=== PATIENT | male | born 2000 | race Caucasian/White ===

== ENCOUNTER 2024-07-06 21:15 | Emergency (ER) | payer SELFPAY ==
[2024-07-06 21:29] VITALS: BP 119/71; PULSE 122; RESP 24; TEMP 36.7; O2SAT 95; BMI 21.1
--- NOTE | 2024-07-06 21:37 | CTR_ITS ---
PROCEDURE INFORMATION: Exam: CT Abdomen And Pelvis Without Contrast Exam date and time: 07/06/2024 9:59 PM Age: 23 years old Clinical indication: Abdominal pain; Right; Patient HX: C/O RT flank pain TECHNIQUE: Imaging protocol: Computed tomography of the abdomen and pelvis without contrast. Radiation optimization: All CT scans at this facility use at least one of these dose optimization techniques: automated exposure control; mA and/or kV adjustment per patient size (includes targeted exams where dose is matched to clinical indication); or iterative reconstruction. COMPARISON: No relevant prior studies available. RADIATION DOSE METRICS: Total DLP (mGy-cm): 365.16 FINDINGS: Liver: Normal. No mass. Gallbladder and biliary ducts: Normal. No calcified stones. No ductal dilation. Pancreas: Normal. No ductal dilation. Spleen: Normal. No splenomegaly. Adrenal glands: Normal. No mass. Kidneys and ureters: There is an obstructing 3 mm stone in the distal right ureter at the ureterovesical junction with upstream hydroureter and mild hydronephrosis. Stomach and bowel: Unremarkable. No obstruction. No mucosal thickening. Appendix: No evidence of appendicitis. Intraperitoneal space: Unremarkable. No free air. No significant fluid collection. Vasculature: Unremarkable. No abdominal aortic aneurysm. Lymph nodes: Unremarkable. No enlarged lymph nodes. Urinary bladder: Unremarkable as visualized. Reproductive: Unremarkable as visualized. Bones/joints: Unremarkable. No acute fracture. Soft tissues: Unremarkable. CT/CT kidney stone [id number] IMPRESSION: There is an obstructing 3 mm stone in the distal right ureter at the ureterovesical junction with upstream hydroureter and mild hydronephrosis.
--- NOTE | 2024-07-06 21:39 | ED_ITS ---
HPI - Back Pain/Injury 2 General: Chief Complaint: Back Pain/Injury Stated Complaint: lOWER ABD PAIN Time Seen by Provider: 07/06/24 21:27 History of Present Illness: 23-year-old man who presents emergency r oom with right flank pain. He had an episode yesterday that lasted about 30 minutes but resolved. Then today he has developed severe low flank pain radiating into his groin. He has had some nausea but no vomiting. No fever. He does have a history of kidney stones. Related Data Previous Rx's Medication Instructions Recorded cephalexin 500 mg capsule 500 mg PO BID 5 days #10 caps 07/06/24 hydrocodone 5 mg-acetaminophen 325 1 tab PO Q6H PRN pain #20 tabs 07/06/24 mg tablet ondansetron 8 mg disintegrating 8 mg PO Q6H #14 tabs 07/06/24 tablet tamsulosin 0.4 mg capsule (Flomax) 0.4 mg PO DAILY #30 caps 07/06/24 Review of Systems 2 Narrative: Constitutional symptoms: Negative except as documented in HPI. Skin symptoms: Negative except as documented in HPI. Eye symptoms: Negative except as documented in HPI. ENMT symptoms: Negative except as documented in HPI. Respiratory symptoms: Negative except as documented in HPI. Cardiovascular symptoms: Negative except as documented in HPI. Gastrointestinal symptoms: Negative except as documented in HPI. Genitourinary symptoms: Negative except as documented in HPI. Musculoskeletal symptoms: Negative except as documented in HPI. Neurologic symptoms: Negative except as documented in HPI. Psychiatric symptoms: Negative except as documented in HPI. Endocrine symptoms: Negative except as documented in HPI. Physical Exam 2 Narrative: EXAM NARRATIVE: General: Alert, patient is in acute pain. Skin: Warm, dry. Head: Normocephalic, atraumatic. Neck: Supple, trachea midline. Eye: Extraocular movements are intact. Ears, nose, mouth and throat: mucosa moist. Cardiovascular: Regular, Normal peripheral perfusion. Respiratory: Lungs are clear to auscultation, respirations are non-labored, breath sounds are equal, Symmetrical chest wall expansion. Gastrointestinal: Soft, moderate right flank pain, Non distended Musculoskeletal: Normal ROM, no deformity. Neurological: Alert and oriented, No focal neurological deficit observed. Psychiatric: Cooperative, appropriate mood & affect. Course 2 Vital Signs: Vital signs: Vital Signs Temperature 98.0 F 07/06/24 21:29 Pulse Rate 71 07/06/24 23:05 Respiratory Rate 16 07/06/24 23:05 Blood Pressure 119/71 07/06/24 21:29 Pulse Oximetry 97 07/06/24 23:05 Oxygen Delivery Me thod Room Air 07/06/24 21:29 MDM - Back Pain/Injury Medical Decision Making Medical decision making: Differential diagnosis including but not limited to and based on the above HPI, review of systems and physical exam: Ureterolithiasis. Urinary tract infection. Appendicitis. Cholecystis. Musculoskeletal / back pain. Pyelonephritis Orders placed to evaluate differential diagnosis based on the above differential, HPI and physical exam Lab Review: Laboratory results were reviewed and interpreted by myself the emergency room physician. No leukocytosis. No anemia. No renal failure. CT of the abdomen pelvis without contrast: Patient has a 4 mm right UVJ stone. There is moderate hydronephrosis. Films were interpreted by myself the emergency room provider and pending final radiology review. I reviewed the patient's medical record. Reexamination: Patient appears somewhat improved. No altered mental status. No focal motor deficits. No fevers. Assessment and plan: Ureterolithiasis ?IV Toradol, IV Zofran and 1 L normal saline bolus in the emergency room. - Discharged home - Discussed findings and plan with patient. Answered any questions. - All laboratory values were reviewed and interpreted personally by myself, the ER physician - All imaging was reviewed and interpreted personally by myself, the ER physician. - Evaluation and treatment of this problem were appropriate in the emergency setting Labs 07/06/24 21:51 07/06/24 21:51 Radiology Impressions Abdomen/Pelvis CT 07/06/24 21:37 IMPRESSION: There is an obstructing 3 mm stone in the distal right ureter at the ureterovesical junction with upstream hydroureter and mild hydronephrosis. Laboratory Results WBC 7.39 10^3/uL (3.29-11.43) 07/06/24 21:51 RBC 5.53 10^6/uL (3.85-5.65) 07/06/24 21:51 Hgb 15.80 g/dL (11.27-16.99) 07/06/24 21:51 Hct 45.9 % (37-53) 07/06/24 21:51 MCV 83.0 fl (82-101) 07/06/24 21:51 MCH 28.6 pg (27-33) 07/06/24 21:51 MCHC 34.4 g/dL (30-55) 07/06/24 21:51 RDW 11.9 % (12.1-15.1) L 07/06/24 21:51 Plt Count 247 10^3/cmm (157-399) 07/06/24 21:51 MPV 10.7 fL (7.4-10.4) H 07/06/24 21:51 Neut % (Auto) 49.5 % 07/06/24 21:51 Lymph % (Auto) 39.0 % 07/06/24 21:51 [place] % (Auto) 9.1 % 07/06/24 21:51 Eos % (Auto) 1.4 % 07/06/24 21:51 Baso % (Auto) 0.7 % 07/06/24 21:51 Neut # (Auto) 3.67 10^3/uL (1.8-7.7) 07/06/24 21:51 Lymph # (Auto) 2.9 10^3/uL (0.8-4.8) 07/06/24 21:51 [place] # (Auto) 0.7 10^3/uL (0.2-0.9) 07/06/24 21:51 Eos # (Auto) 0.1 10^3/uL (0.0-0.8) 07/06/24 21:51 Baso # (Auto) 0.1 10^3/uL (0.0-0.1) 07/06/24 21:51 Nucleated RBC % (auto) 0 % 07/06/24 21:51 Nucleated RBCs # 0.0 /100WBC 07/06/24 21:51 Sodium 144 mmol/L (136-145) 07/06/24 21:51 Potassium 3.3 mmol/L (3.5-5.1) L 07/06/24 21:51 Chloride 104 mmol/L (98-107) 07/06/24 21:51 Carbon Dioxide 22 mmol/L (22-29) 07/06/24 21:51 Anion Gap 21.3 (5-19) H 07/06/24 21:51 BUN 13 mg/dL (6-20) 07/06/24 21:51 Creatinine 1.1 mg/dL (0.7-1.2) 07/06/24 21:51 GFR Calculation 81.6 mL/min (90-130) L 07/06/24 21:51 Glucose 121 mg/dL (65-115) H 07/06/24 21:51 Calculated Osmolality 299 mOsm/kg (285-295) H 07/06/24 21:51 Calcium 9.2 mg/dL (8.5-10.5) 07/06/24 21:51 Total Bilirubin 0.4 mg/dL (0.15-1.2) 07/06/24 21:51 AST 14 U/L (0-40) 07/06/24 21:51 ALT 17 U/L (0-41) 07/06/24 21:51 Alkaline Phosphatase 60 U/L (40-130) 07/06/24 21:51 C-Reactive Protein 3.0 mg/L (0.0-4.9) 07/06/24 21:51 Total Protein 7.3 g/dL (6.6-8.7) 07/06/24 21:51 Albumin 4.6 g/dL (3.5-5.2) 07/06/24 21:51 Globulin 2.7 g/dL (1.3-4.6) 07/06/24 21:51 Urine Color Yellow (Yellow) 07/06/24 22:42 Urine Appearance Clear (CLEAR) 07/06/24 22:42 Urine pH 7.0 (5-7) 07/06/24 22:42 Ur Specific [place] 1.026 (1.005-1.030) 07/06/24 22:42 Urine Protein Trace (Negative) A 07/06/24 22:42 Urine Glucose (UA) Negative (Normal) 07/06/24 22:42 Urine Ketones 1+ (Negative) H 07/06/24 22:42 Urine Blood Negative (Negative) 07/06/24 22:42 Urine Nitrate Negative (Negative) 07/06/24 22:42 Urine Bilirubin Negative (Negative) 07/06/24 22:42 Urine Urobilinogen 1.0 mg/dL (Negative) 07/06/24 22:42 Ur Leukocyte Esterase Negative (Negative) 07/06/24 22:42 Urine RBC 6-10 /hpf (0-2) 07/06/24 22:42 Urine WBC 0-5 /hpf (0-5) 07/06/24 22:42 Ur Squamous Epith Cells 0-5 /hpf (0-5) 07/06/24 22:42 Amorphous Sediment Not Reportable 07/06/24 22:42 Urine Bacteria None seen /hpf (NONE) 07/06/24 22:42 Hyaline Casts 0.81 /lpf 07/06/24 22:42 XR interpretation done by ED provider, pending radiology final review Discharge Plan Discharge Patient Disposition: Home Clinical Impression: Ureterolithiasis Condition: Stable Prescriptions: New hydrocodone-acetaminophen 5-325 mg tablet 1 tab PO Q6H PRN (Reason: pain) Qty: 20 0RF ondansetron 8 mg tablet,disintegrating 8 mg PO Q6H Qty: 14 0RF Rx Instructions: Take 1/2-1 tab every 6 hours as needed for nausea and vomiting Flomax 0.4 mg capsule 0.4 mg PO DAILY Qty: 30 0RF cephalexin 500 mg capsule 500 mg PO BID 5 Days Qty: 10 0RF Discharge Orders: Discharge ED (Routine); Ordered 07/06/24 Ordered By: Arielle Currie Referrals: Luis Antonio Khan [Referring] - (Please call for an appointment with a urologist as soon as possible.) Christopher Mcdonough [Family Provider] - Discharge Diet: Usual diet Discharge Activity: Increase activity as tolerated Patient Instructions: Kidney Stones (ED) Activity Restrictions/Additional Instructions: Call for appointment with urology. If fever (temp >100.4) develops return to the emergency room immediately, as this is an emergency. Take nausea medication prior to taking pain medications. Thank you for choosing [facility] for your healthcare needs today. Please realize this is an emergency room and that we are providing you with a medical screening exam and this may not be complete and all inclusive of all the testing and or work up that you may need to determine your ailment or severity of your illness. You have been screened and evaluated and felt safe for discharge. Health conditions do change or evolve sometimes and as such it is important that you follow up with your Primary Doctor to be re checked, 3-5 days is a general good time frame for follow up. You are always welcome to return to the ED for re assessment if your symptoms are worsening or you have new concerns Coding Level of Care Code ED [employer] for [employer]ali Stewart
[2024-07-06] MEDS: sodium chloride 0.9% 1,000 ML 999 ML IV (21:51)
[2024-07-06] MEDS: ketorolac 30 mg/mL INJ IVP (21:52)
[2024-07-06] MEDS: ondansetron 2 mg/ML SDV 2 mL 8 MG IVP (21:53)
[2024-07-06 21:55] LABS: Basophils # 0.1 10^3/uL (0.0-0.1); Basophils % 0.7 %; Eosinophils # 0.1 10^3/uL (0.0-0.8); Eosinophils % 1.4 %; Hematocrit 45.9 % (37-53); Lymphocytes # 2.9 10^3/uL (0.8-4.8); Mean Corpuscular HGB Conc 34.4 g/dL (30-55); Mean Corpuscular Hemoglobin 28.6 pg (27-33); Mean Platelet Volume 10.7 fL (7.4-10.4); Monocytes # 0.7 10^3/uL (0.2-0.9); Monocytes % 9.1 %; Neutrophils # 3.67 10^3/uL (1.8-7.7); Neutrophils % 49.5 %; Nucleated Red Blood Cells % 0 %; Platelet Count 247 10^3/cmm (157-399); Red Blood Count 5.53 10^6/uL (3.85-5.65); Red Cell Distribution Width 11.9 % (12.1-15.1); White Blood Count 7.39 10^3/uL (3.29-11.43)
[2024-07-06 22:14] LABS: Alanine Aminotransferase 17 U/L (0-41); Albumin Level 4.6 g/dL (3.5-5.2); Alkaline Phosphatase 60 U/L (40-130); Anion Gap 21.3 (5-19); Aspartate Amino Transferase 14 U/L (0-40); Blood Urea Nitrogen 13 mg/dL (6-20); Calcium 9.2 mg/dL (8.5-10.5); Carbon Dioxide 22 mmol/L (22-29); Chloride 104 mmol/L (98-107); Creatinine Clr Calc Pharmacy 105.4887; Globulin 2.7 g/dL (1.3-4.6); Glomerular Filtration Rate 81.6 mL/min (90-130); Glucose 121 mg/dL (65-115); Osmolality Calculated 299 mOsm/kg (285-295); Potassium 3.3 mmol/L (3.5-5.1); Sodium 144 mmol/L (136-145); Total Bilirubin 0.4 mg/dL (0.15-1.2); Total Protein 7.3 g/dL (6.6-8.7)
[2024-07-06 22:51] LABS: Bilirubin Urine Negative (Negative); Blood Urine Negative (Negative); Glucose Urine UA Negative (Normal); Ketones Urine 1+ (Negative); Leukocyte Esterase Urine Negative (Negative); Nitrate Urine Negative (Negative); Protein Urine Trace (Negative); Specific Gravity, Urine 1.026 (1.005-1.030); Urine Appearance Clear (CLEAR); Urine Color Yellow (Yellow)
[2024-07-06 22:53] LABS: Bacteria Urine None Seen /hpf; Hyaline Casts Urine 0.81 /lpf; Squamous Epithelial Cell Urine 0-5 /hpf (0-5); WBC Urine 0-5 /hpf (0-5)
[2024-07-06] MEDS: tamsulosin 0.4 mg Capsule PO (22:53)
--- NOTE | 2024-07-06 22:54 | PC.NURSE ---
Pt sent home with 2tabs [place] 10/325 and 2tabs Zofran 8mg per Dr Currie's orders.
[2024-07-06 23:05] VITALS: PULSE 71; RESP 16; O2SAT 97
== END 2024-07-06 23:04 | disposition home or self-care (01) ==
PROVIDERS: Emergency Provider Emergency Medicine
DX: N13.2 Hydronephrosis with renal and ureteral calculous obstruction (principal)
CPT/HCPCS: 74176; 80053; 81001; 85025; 86140; 96361; 96374; 96375; 99285; J1885; J2405; J7030